=== PATIENT | female | born 1955 | race Caucasian/White ===

== ENCOUNTER → 2018-12-19 | Outpatient (CLI) | payer OTHER ==
[~2018-12-19] MED LIST: LORAZEPAM0.5 MG PO; NITROFURANTOIN100 MG PO; ZOLOFT50 MG PO
--- NOTE | 2018-12-19 12:23 | Diagnostic Imaging Report ---
EXAM: Renal Ultrasound INDICATION: ^[id number] ^[id number] ^MICROSCOPIC HEMATURIA / PROTEINURIA COMPARISON: None TECHNIQUE: Transverse and longitudinal images of the kidneys and bladder were obtained. FINDINGS: Right Kidney: Length: 9.7 cm Appearance: Normal echogenicity. Collecting system: No hydronephrosis Stones: Echogenic focus at upper pole measuring [id number] Cyst/Mass: None Left Kidney: Length: 9.4 cm Appearance: Normal echogenicity. Collecting system: Minimal hydronephrosis Stones: Echogenic focus at midpole measuring 3 x1x2mm Cyst/Mass: None Bladder: No mass, stones, or wall thickening. Prevoid volume of 293.5cc. Bilateral ureteral jets visualized. IMPRESSION: Minimal left hydronephrosis. Small bilateral echogenic foci likely representing renal calculi as above. Signed by: Mireille Bender MD on 12/19/2018 12:20 PM
--- NOTE | 2018-12-19 15:37 | Diagnostic Imaging Report ---
Exam: KUB - 2 views Clinical History: Hematuria Comparison: KUB of 05/08/2015 Findings: Nonobstructive bowel gas pattern. No evidence of free intraperitoneal air. No evidence of abnormal calcification. No acute bony abnormality. Impression: No radiographically apparent renal calculi. Renal ultrasound of the same day shows bilateral small nonobstructive renal calculi and is more sensitive than abdominal radiograph. Signed by: Mireille Bender MD on 12/19/2018 3:33 PM
== END ==
LOC: US 09:49
PROVIDERS: ATTEND Urology
DX: R31.21 Asymptomatic microscopic hematuria (principal); R80.9 Proteinuria, unspecified
CPT/HCPCS: 74018; 76770

== ENCOUNTER → 2018-12-27 | Outpatient (CLI) | payer OTHER ==
--- NOTE | 2018-12-27 13:30 | Diagnostic Imaging Report ---
EXAM: CT Abdomen and Pelvis WITHOUT intravenous contrast INDICATION: Hydronephrosis, renal calculi. Hematuria, pyuria. COMPARISON: KUB and renal ultrasound of 12/19/2018 TECHNIQUE: Abdomen and pelvis were scanned utilizing a multidetector helical scanner from the lung base to the pubic symphysis without administration of IV contrast. Coronal and sagittal reformations were obtained. IV CONTRAST: None ORAL CONTRAST: None COMPLICATIONS: None RADIATION DOSE: Total DLP: 179.0 mGy*cm Dose modulation, iterative reconstruction, and/or weight based adjustment of the mA/kV was utilized to reduce the radiation dose to as low as reasonably achievable. FINDINGS: LOWER THORAX: No focal consolidation at the lung bases. Incidental note made of bilateral breast implants. HEPATOBILIARY: No focal hepatic lesions. No biliary ductal dilatation. The gallbladder appears unremarkable. SPLEEN: No splenomegaly. PANCREAS: No focal masses or ductal dilatation. ADRENALS: No adrenal nodules. KIDNEYS/URETERS: No renal calculi identified. Mild right hydronephrosis. No substantial left hydronephrosis. No calcific densities along the expected course of the ureters. PELVIC ORGANS/BLADDER: No bladder calculi. Status post hysterectomy. PERITONEUM / RETROPERITONEUM: No free fluid or free air. LYMPH NODES: No lymphadenopathy. VESSELS: Unremarkable. GI TRACT: Sigmoid diverticulosis with no CT evidence of diverticulitis. No bowel obstruction or abnormal bowel wall thickening. The appendix is not well visualized, however there are no secondary findings to suggest appendicitis in the right lower quadrant. BONES AND SOFT TISSUES: No acute osseous injury. No suspicious lytic or blastic lesions. IMPRESSION: Mild right hydronephrosis. No significant left hydronephrosis. No renal calculi. Sigmoid diverticulosis without CT evidence of diverticulitis. Signed by: Mireille Bender MD on 12/27/2018 1:27 PM
== END ==
LOC: CT 11:37
PROVIDERS: ATTEND Urology
DX: N13.2 Hydronephrosis with renal and ureteral calculous obstruction (principal)
CPT/HCPCS: 74176

== ENCOUNTER → 2019-01-03 | Outpatient (CLI) | payer OTHER ==
[~2019-01-03] MED LIST changes: +FUROSEMIDE INJ 10 MG/ML 4 ML VIAL ONE
--- NOTE | 2019-01-03 20:01 | Diagnostic Imaging Report ---
Renal Scan with Lasix Washout Clinical information: 63 F with hydronephrosis Technique: Following intravenous administration of 11 mCi of Tc-99m MAG3, dynamic images of the kidneys in the posterior projection were obtained through 40 minutes. Lasix 40 mg was administered intravenously at 10 minutes post injection of the tracer. Report: Left kidney: Perfusion of the left kidney is prompt. The kidney has a reniform shape but is slightly reduced in size. Extraction of tracer from the blood pool is normal. Clearance of tracer from the renal parenchyma begins promptly but is not complete by the end of the study. The pelvicalyceal system is not dilated. Physiologic pooling of tracer is seen within the pelvicalyceal system. Drainage of tracer from the pelvicalyceal system is adequate prior to administration of Lasix. No significant stasis of tracer is seen within the left ureter. Right kidney: Perfusion to the right kidney is prompt. The right kidney is ptotic. The right kidney has a reniform shape but is slightly reduced in size. Extraction of tracer by the renal parenchyma is normal. Clearance of tracer from the renal parenchyma begins promptly but is not complete by the end of the study. The pelvicalyceal system is not dilated. Physiologic pooling of tracer is seen within the pelvicalyceal system. Drainage of tracer from the pelvicalyceal system is prompt and adequate prior to administration of Lasix. Washout of tracer from the pelvicalyceal system following administration of Lasix is rapid with a T-1/2 of 4 minutes (normal less than 15 minutes). No significant stasis of tracer is seen within the right ureter. Differential renal function: The left kidney contributes 51% of total renal function and the right kidney contributes 49% (normal 43-57%). Impression: 1. Mild medical renal disease is present in the left kidney evidenced by decrease in size and persistent tracer in the renal parenchyma at the end of the study. No hydronephrosis is present. No physiologically significant obstruction of the renal collecting system is present. 2. Mild medical renal disease is present in the right kidney evidenced by decrease in size and persistent tracer in the renal parenchyma at the end of the study. No hydronephrosis is present. No physiologically significant obstruction of the renal collecting system is present. 3. The differential renal function is preserved. Signed by: Dr. Stephany Hoover M.D. on 01/03/2019 7:58 PM
== END ==
LOC: NM 13:51
PROVIDERS: ATTEND Urology
DX: N13.30 Unspecified hydronephrosis (principal)
CPT/HCPCS: 78708; A9562; J1940

== ENCOUNTER → 2020-03-04 | Outpatient (CLI) | payer OTHER ==
[~2020-03-04] MED LIST changes: -FUROSEMIDE INJ 10 MG/ML 4 ML VIAL ONE
--- NOTE | 2020-03-04 16:43 | Diagnostic Imaging Report ---
EXAM: Renal Ultrasound INDICATION: ^Renal sclerosis; Asymptomatic microscopic hematuria COMPARISON: CT abdomen and pelvis of 12/27/2018, renal ultrasound of 12/19/2018 TECHNIQUE: Transverse and longitudinal images of the kidneys and bladder were obtained. FINDINGS: Right Kidney: Length: 8.0 cm Appearance: Normal echogenicity. Collecting system: No hydronephrosis Stones: None Cyst/Mass: None Left Kidney: Length: 9.9 cm Appearance: Normal echogenicity. Collecting system: No hydronephrosis Stones: None Cyst/Mass: None Bladder: No mass or calculi. Ureteral jets not visualized. Volume estimate of 270 cc. IMPRESSION: No hydronephrosis or renal calculi. Signed by: Mireille Bender MD on 03/04/2020 4:39 PM
== END ==
LOC: US 14:01
PROVIDERS: ATTEND Urology
DX: N26.9 Renal sclerosis, unspecified (principal); R31.21 Asymptomatic microscopic hematuria
CPT/HCPCS: 76770

== ENCOUNTER → 2020-05-15 | Day surgery (SDC) | payer OTHER ==
[~2020-05-15] MED LIST changes: +B&O 60MG R/S 60 MG SUPP PR ONE; +CENTRUM COMPLE1 EACH PO; +DEXAMETHASONE SOD PHOS INJ 4 MG/ML VIAL ONE; +GENTAMICIN 80MG/NS 100 ML 200 ML IV ONE; +IOPAMIDOL 300MG/ML 50ML INFUS..BTL IV ONE; +LIDOCAINE HCL 2% JELLY 5 ML TUBE ONE; +LIDOCAINE HCL 2% LOCAL INJ 5 ML SDV VIAL INJ ONE; +MIDAZOLAM HCL 2 MG/2 ML VIAL ONE; +ONDANSETRON HCL INJ 2MG/ML 2ML 2 MG/ML VIAL ONE; +PROPOFOL IV EMULSION 10 MG/ML 20 ML VIAL ONE; +PROVENTIL HFA6.7 GM INH; +SEVOFLURANE INHAL SOLN 250 ML PEN BTL ONE
[2020-05-15 10:20] VITALS: BP 129/86
== END | disposition home or self-care (01) ==
LOC: OR 07:29
PROVIDERS: ATTEND Urology
DX: N39.0 Urinary tract infection, site not specified (principal); N30.11 Interstitial cystitis (chronic) with hematuria; N35.92 Unspecified urethral stricture, female; N81.4 Uterovaginal prolapse, unspecified; N95.2 Postmenopausal atrophic vaginitis; R31.29 Other microscopic hematuria; Z88.5 Allergy status to narcotic agent; Z88.2 Allergy status to sulfonamides; Z87.891 Personal history of nicotine dependence; J45.909 Unspecified asthma, uncomplicated; F41.9 Anxiety disorder, unspecified; Z01.810 Encounter for preprocedural cardiovascular examination; Z01.812 Encounter for preprocedural laboratory examination; Z20.828 Contact with and (suspected) exposure to other viral communicable diseases
CPT/HCPCS: 52260; 74420; 93005; C1758; J1100; J1580; J2001 ×2; J2250; J2405; J2704; Q9967; U0002

== ENCOUNTER 2021-03-06 06:01 | Observation (INO) | payer OTHER ==
[2021-03-04 15:05] LABS: BASOPHILS % 0.5 % (0.0-1.0); EOSINOPHILS # (AUTO) 0.3 (0.0-0.4); HEMATOCRIT 43.9 % (34.2-44.1); HEMOGLOBIN 14.3 g/dL (12.0-16.0); LYMPHOCYTES # (AUTO) 1.6 (1.0-3.2); MEAN CORPUSCULAR HEMOGLOBIN 32.1 pg (28-32); MEAN CORPUSCULAR HGB CONC 32.6 g/dL (31-35); MEAN CORPUSCULAR VOLUME 98.7 fL (81-99); MONOCYTES # (AUTO) 0.6 (0.2-0.8); MONOCYTES % 9.4 % (4.4-11.3); NEUTROPHILS # (AUTO) 3.8 (2.1-6.9); NEUTROPHILS % 59.8 % (38.7-80.0); PLATELET COUNT 302 x10e3/uL (140-360); RED BLOOD COUNT 4.45 x10e6/uL (3.6-5.1); RED CELL DISTRIBUTION WIDTH 12.5 % (11.7-14.4)
[2021-03-04 15:22] LABS: ANION GAP 12.8 mmol/L (8-16); CALCIUM 9.3 mg/dL (8.4-10.2); CREATININE, SERUM 0.84 mg/dL (0.57-1.11); POTASSIUM 3.8 mmol/L (3.5-5.1)
[2021-03-04 15:24] LABS: INR 0.98; PROTHROMBIN TIME 13.2 seconds (11.9-14.5)
[2021-03-04 15:25] LABS: PARTIAL THROMBOPLASTIN TIME 27.3 seconds (23.8-35.5)
[~2021-03-06] VITALS: Ht 157.5 cm; Wt 56.0 kg
[~2021-03-06 06:01] MED LIST changes: -B&O 60MG R/S 60 MG SUPP PR ONE; -DEXAMETHASONE SOD PHOS INJ 4 MG/ML VIAL ONE; -GENTAMICIN 80MG/NS 100 ML 200 ML IV ONE; -IOPAMIDOL 300MG/ML 50ML INFUS..BTL IV ONE; -LIDOCAINE HCL 2% JELLY 5 ML TUBE ONE; -LIDOCAINE HCL 2% LOCAL INJ 5 ML SDV VIAL INJ ONE; -MIDAZOLAM HCL 2 MG/2 ML VIAL ONE; -ONDANSETRON HCL INJ 2MG/ML 2ML 2 MG/ML VIAL ONE; -PROPOFOL IV EMULSION 10 MG/ML 20 ML VIAL ONE; -SEVOFLURANE INHAL SOLN 250 ML PEN BTL ONE; +TESTOSTERO100 MG/1 M INJ
[2021-03-06] MEDS ORDERED: LIDOCAINE 1% W/EPINEPHRINE 20 ML VIAL ONE (06:36)
[2021-03-06] MEDS ORDERED: THROMBIN FOR SOLN 5,000 UNIT VIAL ONE (06:37)
[2021-03-06] MEDS ORDERED: Vancomycin IV 1 GM VIAL ONE (06:37)
[2021-03-06] MEDS ORDERED: SODIUM CHLORIDE 0.9% 50ML 50 ML ONE (07:58)
[2021-03-06] MEDS ORDERED: ACETAMINOPHEN 1000 MG/100 ML 100 ML IV ONE (09:54)
[2021-03-06] MEDS ORDERED: HYDROCODON-ACE1 EA12 PO (10:55)
[2021-03-06] MEDS ORDERED: HYDROMORPHONE 2MG/ML 2 MG/ML ML IV PRN (11:00)
[2021-03-06] MEDS ORDERED: ALBUTEROL SULFATE HFA 8GM INHALATION AEROSOL INH PRN (11:00)
[2021-03-06] MEDS ORDERED: ACETAMINOPHEN 325 MG TAB PO PRN (11:00)
[2021-03-06] MEDS ORDERED: OXYCODONE/ACETAMINOPHEN 5-325 1 EACH TABLET PO PRN (11:00)
[2021-03-06] MEDS ORDERED: MORPHINE SULFATE 5 MG/ML VIAL IM PRN (11:00)
[2021-03-06] MEDS ORDERED: ONDANSETRON HCL INJ 2MG/ML 2ML 2 MG/ML VIAL IV PRN (11:00)
[2021-03-06] MEDS ORDERED: PROMETHAZINE HCL (IM) 25 MG/ML VIAL IM PRN (11:00)
[2021-03-06] MEDS ORDERED: MAGNESIUM/ALUMINUM/SIMETHICONE 30 ML UDC PO PRN (11:00)
[2021-03-06] MEDS ORDERED: LORAZEPAM 0.5 MG TAB PO PRN (11:00)
[2021-03-06] MEDS ORDERED: LORTAB 10 MG-3473 ML PO (11:06)
[2021-03-06] MEDS ORDERED: FENTANYL CITRATE/PF 100MCG/2 ML INJ ONE (11:32)
[2021-03-06 11:56] VITALS: BP 138/89
[2021-03-06 12:00] VITALS: BP 138/89
[2021-03-06] MEDS: LACTATED RINGER'S 1,000 ML IV SCH ×3 (12:42→21:06)
[2021-03-06] MEDS: Cefazolin 1 GM in SODIUM CHLORIDE 0.9% 50ML 50 ML IV SCH ×2 (15:01→21:53)
[2021-03-06] MEDS: CARISOPRODOL 350 MG TAB PO PRN ×2 (15:13→21:54)
[2021-03-06 15:24] VITALS: BP 112/63
[2021-03-06 20:00] VITALS: BP 101/57
[2021-03-06 21:00] VITALS: BP 101/57
[2021-03-06] MEDS ORDERED: ZOLPIDEM TARTRATE 5 MG TAB PO PRN (21:00)
[2021-03-07] VITALS: BP 109/71
[2021-03-07 04:00] VITALS: BP 123/75
[2021-03-07] MEDS: Cefazolin 1 GM in SODIUM CHLORIDE 0.9% 50ML 50 ML IV SCH (06:00)
[2021-03-07 07:32] VITALS: BP 134/68
[2021-03-07 08:50] VITALS: BP 134/68
[2021-03-07] MEDS ORDERED: SERTRALINE HCL 50 MG TAB PO SCH (09:00)
== END 2021-03-07 09:49 | disposition home or self-care (01) ==
LOC: OR 06:01 → PACU V 10:53 → MED/SURG 11:51
PROVIDERS: ADMIT Neurological Surgery; ATTEND Neurological Surgery
DX: M47.22 Other spondylosis with radiculopathy, cervical region (principal); J45.909 Unspecified asthma, uncomplicated; N26.1 Atrophy of kidney (terminal); Z87.891 Personal history of nicotine dependence; K21.9 Gastro-esophageal reflux disease without esophagitis; Z01.810 Encounter for preprocedural cardiovascular examination; Z01.812 Encounter for preprocedural laboratory examination; Z01.818 Encounter for other preprocedural examination; Z20.822 Contact with and (suspected) exposure to COVID-19; Z88.5 Allergy status to narcotic agent; Z88.2 Allergy status to sulfonamides; Z88.8 Allergy status to other drugs, medicaments and biological substances
CPT/HCPCS: 20931; 22551; 22552; 22845; 36415; 71046; 72040; 80048; 85025; 85610; 85730; 86850; 86900; 88304; 93005; C1713 ×6; C1763; G0378 ×2; J0131; J0690 ×2; J1170; J2405; J2550; J3010; J3370; J7121 ×2; L8699; U0002; 77003

== ENCOUNTER → 2021-04-02 | Outpatient (CLI) | payer OTHER ==
[~2021-04-02] MED LIST changes: +HYDROCODON-ACE1 EA12 PO; +LORTAB 10 MG-3473 ML PO
== END ==
LOC: US 13:40
PROVIDERS: ATTEND Urology
DX: R31.21 Asymptomatic microscopic hematuria (principal)
CPT/HCPCS: 76770

== ENCOUNTER → 2021-04-03 | Outpatient (CLI) | payer OTHER | LOC: RAD 13:41 | PROVIDERS: ATTEND Neurological Surgery | DX: M50.20 Other cervical disc displacement, unspecified cervical region (principal); M43.22 Fusion of spine, cervical region | CPT/HCPCS: 72050 ==

== ENCOUNTER → 2021-09-26 | Outpatient (CLI) | payer OTHER | LOC: RAD 14:41 | PROVIDERS: ATTEND Neurological Surgery | DX: M50.20 Other cervical disc displacement, unspecified cervical region (principal); M43.22 Fusion of spine, cervical region | CPT/HCPCS: 72050 ==

== ENCOUNTER → 2022-07-08 | Outpatient (CLI) | payer OTHER | LOC: US 12:38 | PROVIDERS: ATTEND Urology | DX: N39.0 Urinary tract infection, site not specified (principal) | CPT/HCPCS: 76770; 76857 ==